=== PATIENT | female | born 1980 | race Caucasian/White ===

== ENCOUNTER 2024-02-05 10:30 | Day surgery (SDC) | payer BC, SELFPAY ==
[2024-02-05] VITALS (24 sets, daily range): BP systolic 99–133; BP diastolic 33–83; PULSE 44–63; RESP 7–19; TEMP 36.4–36.5; O2SAT 97–100; BMI 30.8
--- NOTE | 2024-02-05 09:30 | DI.RAD_ITS ---
Exam(s) XR WRIST LT LIMITED EXAM: XR WRIST LT LIMITED CLINICAL HISTORY: LEft Radius Fracture. TECHNIQUE: 2D and realtime digital imaging was performed. COMPARISON: CR LEFT MIDDLE FINGER from 03/27/2015 FINDINGS: Hard copy images show placement of a fixation plate along the volar aspect of the distal radius for f racture fixation. Please see procedure note for details. Fluoro time: 18.1seconds RADIATION DOSE DELIVERED: regine Santos=0.54 mGy
--- NOTE | 2024-02-05 10:38 | W.PREOPHP ---
Assessment and Plan Assessment and plan (1) Fracture of left distal radius: Status: Acute Assessment and plan: Kaycee is a 44-year-old female who suffered a fall resulting in a displaced distal radius fracture. Given the displacement, her young age, and duration from the time of the initial injury, I recommend operative fixation. I discussed the technical details of the case. I reviewed potential complications to include bleeding, infection, pain, stiffness, loss of reduction, malunion, nonunion, damage to nerves and vessels, damage to tendons including tendon rupture, need for repeat procedures. Despite these risk, she elects to proceed. Qualifiers: Encounter type: initial encounter Fracture morphology: Colles' Fracture type: closed Qualified Code(s): S52.532A - Colles' fracture of left radius, initial encounter for closed fracture History of Present Illness History of Present Illness Chief Complaint: Left Wrist Fracture Narrative: Sherry is a 44-year-old right hand dominant female who was on vacation in [place] when she tripped and fell onto an outstretched left hand. She had immediate pain and deformity. She was seen in a clinic there in [place] and diagnosed with a displaced slightly comminuted distal radius fracture. No significant reduction was performed she was placed into a splint. That happened about 1 week ago. She has had some continued pain about the wrist although within the splint. No numbness or tingling. Has had some difficulty with finger range of motion. Review of Systems All systems reviewed & are unremarkable except as noted in HPI and below PFSH All Active Problems Fracture of left distal radius (Acute) Surgical History Hx of wisdom tooth extraction section x2 Social History Smoking/Tobacco Use Status: Current every day Tobacco Type: cigarettes Smoking risk assessment performed?: Yes Alcohol Intake: current Alcohol Intake frequency: a few times a week Drug use: Never Substance use type: does not use Housing: apartment Do you feel safe at home: Yes Do you feel safe in your relationship?: Yes Meds Allergies and Home Medications Allergies Allergy/AdvReac Type Severity Reaction Status Date / Time Penicillins Allergy Intermediate hives Verified 02/05/24 10:46 Sulfa (Sulfonamide Allergy Intermediate hives Verified 02/05/24 10:46 Antibiotics) Home Medications ?Medication ?Instructions ?Recorded ?Confirmed ?Type acetaminophen 500 mg capsule 1,000 mg PO Q6H PRN 02/03/24 02/05/24 History Exam Const General: cooperative, healthy appearing, comfortable and no acute distress Resp Effort & Inspection: normal respiratory effort Auscultation: clear to auscultation bilaterally Cardio Rate: regular rate Rhythm: regular rhythm Extrem Other: Evaluation of the left hand shows notable swelling. Some ecchymosis. Sensation intact light touch of the median, radial, ulnar nerve. Capillary refill less than 2 seconds. Range of motion of the wrist was not tested. No pain to palpation of the elbow. Results Imaging Imaging Studies: X-ray of the left wrist was reviewed from phone images taken in [place]. This demonstrates a dorsally angulated distal radius fracture with an ulnar styloid fracture. The distal radial segment is angulated at least 35 to 40 degrees. No apparent intra-articular extension.
[2024-02-05] MEDS: Celecoxib 200 MG CAP 400 MG PO (10:53)
[2024-02-05] MEDS: Acetaminophen 500 MG TAB 1000 MG PO (10:53)
--- NOTE | 2024-02-05 10:53 | W.ANESPRE ---
General Info Date of Service Date Performed: 02/05/24 Height: 5 ft 2 in Weight: 76.5 kg Body Mass Index (BMI): 30.8 Surgical Procedure: Operation Date: 02/05/24 11:40 Proposed Procedure Side Surgeon p Wrist ORIF Distal Radius Left Ronal Javier MD Meds Allergies and Home Medications Allergies Allergy/AdvReac Type Severity Reaction Status Date / Time Penicillins Allergy Intermediate hives Verified 02/05/24 10:46 Sulfa (Sulfonamide Allergy Intermediate hives Verified 02/05/24 10:46 Antibiotics) Home Medication ?Medication ?Instructions ?Recorded acetaminophen 500 mg capsule 1,000 mg PO Q6H PRN 02/03/24 Current Visit Medications: Current Medications Generic Name Dose Route Start Last Admin Trade Name Freq PRN Reason Stop Dose Admin Acetaminophen 1,000 mg 02/05/24 06:00 Acetaminophen 500 Mg Tab PO 02/05/24 23:59 PREOP PEBBLES Celecoxib 400 mg 02/05/24 06:00 Celecoxib 200 Mg Cap PO 02/05/24 23:59 PREOP PEBBLES Ringer's Solution 1,000 mls @ 80 mls/hr 02/05/24 06:00 IV 03/05/24 23:59 INFUSION PEBBLES Cefazolin Sodium/Dextrose 2 gm in 50 mls @ 100 mls/hr 02/05/24 06:00 Ancef Duplex IVPB 02/05/24 23:59 PREOP PEBBLES Tranexamic Acid/Sodium Chloride 1,000 mg in 100 mls @ 600 mls/hr 02/05/24 06:00 IVPB 02/05/24 23:59 PREOP PEBBLES IV Miscellaneous Supplies 1 each 02/05/24 06:00 Iv Access IV 03/05/24 23:59 DIRECTED PEBBLES Sodium Chloride 0 ml 02/05/24 06:00 Normal Saline Flush 10 Ml Syr IV 03/05/24 23:59 PRN PRN Sodium Chloride 0 ml 02/05/24 06:00 Normal Saline 10 Ml Vial IJ 03/05/24 23:59 DIRECTED PRN Sterile Water 0 ml 02/05/24 06:00 Water,Injection,Sterile 10 Ml Vial IJ 03/05/24 23:59 DIRECTED PRN PFSH Active Problems Active Problems: Problem Status Onset Code Fracture of left distal radius Acute S52.502A Surgical History Surgical History Hx of wisdom tooth extraction section x2 Tobacco Smoking/Tobacco Use Status: Current every day Tobacco Type: cigarettes Alcohol Alcohol Intake: current Alcohol intake frequency: a few times a week Substance Use Substance use: Never Substance use type: does not use Vital Signs and Lab Results Vital Signs Most Recent Vital Signs in EMR: Most Recent Vital Signs Temp Pulse Resp BP Pulse Ox 36.5 C 60 16 99/51 L 98 02/05/24 10:47 02/05/24 10:47 02/05/24 10:47 02/05/24 10:47 02/05/24 10:47 Lab Results Blood Type / Crossmatch: No Data to Display Complete Blood Count: No Data to Display Complete Metabolic Panel: No Data to Display Liver Function Panel: No Data to Display Coagulation Panel: No Data to Display Cardiac Panel: No Data to Display Arterial Blood Gas: No Data to Display Venous Blood Gas: No Data to Display Pancreas Panel: No Data to Display Thyroid Panel: No Data to Display Infectious Disease: No Data to Display Blood Cultures: No Data to Display Toxicology Panel: No Data to Display Panel: No Data to Display Anesthesia Assessment and Plan Anesthesia History Personal History: No History of Anesthesia Complications Family History: No Family History of Anesthesia Complications Exercise Tolerance Exercise Tolerance: Metabolic Equivalents>4 Pertinent Negatives Pertinent Negatives: No Major Cardiovascular Symptoms or Complaints Cardiac & Pulmonary Exam Cardiac Exam: Normal S1/S2 Heart Sounds Pulmonary Exam: Clear Bilateral Breath Sounds Implantable Cardiac Device Does patient have a Pacemaker or an ICD?: No Airway Exam Known Difficult Airway: No Mallampati Class: 3 Mouth Opening: Narrow (< 3cm) Thyromental Distance: Greater than 3 cm Neck Range of Motion: Full ROM Neck Circumference: Normal Teeth Condition: Normal Dentition (Cracked #[id number] preexisting) ASA Classification ASA Score: ASA 2 Emergency Case?: No NPO Status NPO Status: NPO Clears >2 hours, Solids >8 hours Status Status: Negative HCG Anesthesia Plan Resuscitation Status: Full Code Anesthesia Technique: General Anesthesia Airway Planned: LMA Pain Management: Surgeon and patient request nerve block (Rescue in PACU if patient requests) Monitors Used: Standard Monitors
[2024-02-05] MEDS: Lactated Ringers 1,000 ML 80 ML IV (11:09)
[2024-02-05] MEDS: ceFAZolin 2 GM/50 ML BAG IVPB (11:32)
[2024-02-05] MEDS: TRANEXAMIC ACID/SOD. CHL. 1,000 MG/100 ML BAG 600 MG IVPB (11:44)
[2024-02-05] MEDS: Bupivacaine 0.5% Pres-Free W/EPI 30 ML VIAL (11:57)
--- NOTE | 2024-02-05 13:06 | PDOC.DSDIS_ITS ---
Date of service: 02/05/24 Time of Service: 13:07 Discharge Plan Disposition Patient Disposition: Home Condition: Good Discharge Details Attending Provider: Ronal Javier Primary Care Provider: Dania Cam Home Meds and New Rx's Prescriptions: New hydrocodone-acetaminophen 5-325 mg tablet 1 tab PO Q6H PRN (Reason: pain) Qty: 12 0RF acetaminophen 500 mg tablet 500 mg PO Q6H PRN PRN (Reason: pain) Qty: 40 3RF ibuprofen 600 mg tablet 600 mg PO TID PRN (Reason: pain) Qty: 90 3RF Discontinued acetaminophen 500 mg capsule 1,000 mg PO Q6H PRN Discharge Instructions Additional Instructions: Wrist Fracture Fixation Discharge Instructions Activity: You should keep the hand/wrist elevated as much as possible for the first few days. You may use the other fingers as tolerated but avoid trying to do too much too soon. You may perform light activities with the splint in place. Dressing/Cast: Your splint should stay in place at all times. Do NOT get it wet. You may loosen the AL wrap if you feel it is too tight and then rewrap more loosely. Medications: - You should take Tylenol and Ibuprofen for baseline pain control. - You have been prescribed a stronger pain medication, Hydrocodone, for breakthrough pain. - You may apply ice over the wrist, just double bag so it doesn't get wet. Follow-up: 10-14 days Referrals: Ronal Javier MD [ [facility] STAFF PHYSICIAN] - Equipment/Supplies: Splint Activity:: Elevate Remove Dressings/Wound Care:: Do Not Remove Shower/Bathe:: Cover Diet:: As Tolerated Discharge Orders Discharge Orders: Discharge Order (Routine); Ordered 02/05/24 Ordered By: Ronal Javier DS: Diagnosis Discharge Diagnosis (1) Fracture of left distal radius: Status: Acute
--- NOTE | 2024-02-05 13:09 | ROE_ITS ---
Date of service: 02/05/24 Time of Service: 11:40 Operative Note Operative Note DATE OF PROCEDURE: 02/05/24 PRE-OP DIAGNOSIS: Left Distal Radius Fracture POST-OP DIAGNOSIS: same PROCEDURE: Open Reduction and Internal Fixation of Extra-Articular Left Distal Radius SURGEON: Ronal Javier POLITICAL AIDE: Jese Leija ANESTHESIA TYPE: General LMA/ETT Refer to Anesthesia Record ESTIMATED BLOOD LOSS: 10 PATHOLOGY: none sent COMPLICATIONS: None Patient was transported to: PACU Patient's condition: stable Indications: Sherry is a 44 year old female who has a displaced distal radius fracture. Given the deformity, displacement, fracture pattern, and effect on daily function, I recommended surgical fixation. I reviewed the risk of the procedure to include bleeding, infection co-pay, stiffness, damage to nerves and vessels, damage to muscles and tendons, malunion, nonunion, hardware prominence, tendon rupture, need for repeat procedures. Despite these risks, the patient elected to proceed. Findings: There is a distal radius fracture which had 1 epiphyseal fragment, extra- articular. It was reduced and fixed with a Synthes volar locking plate. Procedure Description: Sherry was greeted in the preoperative holding area. The correct patient and site was confirmed and marked. The history and physical was updated. The consent was reviewed the patient and signed. The patient was taken to the operating room and placed in the supine position. All bony problems were well- padded. The left arm was placed onto a radiolucent hand table. Prophylactic antibiotics in the form of cefazolin were administered. The left arm was prepped with ChloraPrep and draped in a standard fashion. A timeout was performed for safe surgery. A standard longitudinal incision was made overlying the flexor carpi radialis tendon starting at the distal wrist crease and moving proximally. The skin was incised sharply. The flexor carpi radialis tendon and its sheath is identified. The sheath was opened. The tendon was moved ulnarly in the floor of the sheath was incised. Blunt dissection the flexor pollicis longus muscle belly and tendon were also made radially exposing the pronator quadratus and the distal radius. The printer quadratus was elevated with an ulnar-based flap. This exposed the volar distal radius and the fracture. A garber elevator was used for full exposure of the volar surface of the distal radius. The primary fracture line was exposed. Using a series of elevators, curettes, and knife, the fracture was fully debrided of any fibrous tissue and callus formation. I used a freer elevator to help mobilize the fragments. There was one distal epiphyseal fragment. I then performed a closed reduction. Using gentle traction and fracture manipulation, this reduction was held. A single k-wire was placed through the radial styloid and into the distal radial shaft. Fluoroscopic images were used to confirm adequate reduction. An appropriately sized Synthes volar locking plate was then placed onto the bony surface of the distal radius. Was then held there with a distal radius clamp sandwiching the plate to the distal segment. A single K wire was placed through the distal end. Fluoroscopy was once again used to confirm appropriate positioning of the plate on the distal radius. A reduction K wire was placed into the slotted hole on the shaft but not tightened all the way to allow for manipulation of the distal segment onto the proximal shaft. A single nonlocking screw was placed to the distal portion of the plate securing the plate against the bone of the distal radial metaphysis. Once again, the plate was evaluated to make sure it was aligned appropriately. The single screw was also checked to make sure it was in appropriate positioning for trajectory of future screws. The remainder of the screws within the volar locking plate were filled with locking screws. These were made sure not to penetrate the dorsal cortex. Once these were applied the proximal portion of the plate was further reduced down onto the shaft, which further reduce the distal segment. This was held in position with a tightened reduction K wire. Fluoroscopy was then used against confirm appropriate reduction. Nonlocking screws were placed within the 3 shaft screw holes. Final x-rays were obtained which demonstrated adequate reduction and positioning of hardware. The dorsal sunrise view was also obtained to ensure correct sizing of screws. The wound was then thoroughly irrigated. The pronator quadratus was reapproximated with a 0 Vicryl. The deep dermal layer was closed with a 2-0 Vicryl. The skin was closed with 4-0 nylon. The wound was dressed with Xeroform, 4 x 4's, web roll. A short arm splint was applied. At the end the case all counts are correct. Patient was transferred back to the PACU in stable condition.
[2024-02-05] MEDS: fentaNYL 100 MCG/2 ML VIAL IVP ×2 (13:16→13:59)
--- NOTE | 2024-02-05 13:45 | W.ANESNERVE ---
Nerve Block Single Injection Procedure Date and Time Date Performed: 02/05/24 Procedure Start: 13:34 Location Where Procedure Performed Procedure Location: PACU Reason Performed: Acute Pain Management Pain Diagnosis: Wrist Pain (Post wrist ORIF, consented for rescue block, currently having significant pain. ) Requesting Provider: Abida Wyatt Timeout Performed Timeout Performed: Yes Monitoring Used ECG, Blood Pressure and SpO2 Sterility Sterility: Hand Hygiene, Surgical Cap, Surgical Mask, Sterile Gloves, Sterile Drape/Sheet and Chlorhexidine Sedation Given During Procedure Sedation Given (Indicate Dose Given): No Sedation given Patient Mental Status Patient Mental Status: Awake Nerve Block 1st Nerve Block: Laterality: Left Block Type: Supraclavicular Ultrasound Image Saved?: Yes Needle / Catheter Used: 100mm SonoPlex II Local Anesthetic Bolus (Indicate Dose Given): Lidocaine used for local infiltration of skin, Bupivacaine 0.375% Dose:: 15 mL and Exparel Dose:: 20 mL Additives (Indicate Dose Given): None Ultrasound: Sterile probe cover and gel used Nerve Stimulator: Supplement to Ultrasound use and No twitch or parasthesia noted < 0.5 mA Paresthesia: None Procedure Tolerated: No Complications Procedure Outcome: Successful Performed By: Luis Lew
--- NOTE | 2024-02-05 15:28 | W.ANESPOSTOP ---
Postoperative Evaluation Date, Time and Location Date Performed: 02/05/24 Time Performed: 15:10 Patient Location: Day Surgery Unit Vital Signs Most Recent Imported Vital Signs: Most Recent Vital Signs Temp Pulse Resp BP Pulse Ox 36.5 C 59 L 16 121/66 98 02/05/24 14:52 02/05/24 14:52 02/05/24 14:52 02/05/24 14:52 02/05/24 14:52 Pain Score Most Recent Pain Score: Most Recent Pain Score Pain Level 0 02/05/24 14:52 Assessment Mental Status: Awake (Alert & Oriented to Patient Baseline) Airway and Respiratory Function: Patent airway with normal (patient baseline) respiratory exam Cardiovascular Function: Hemodynamically Stable Hydration Status: Adequately Hydrated Nausea & Vomiting: No Nausea or Vomiting Pain: Pain is tolerable per patient Peripheral Nerve Block: Regional nerve block not resolved at time of post operative discharge
== END 2024-02-05 15:14 | disposition home or self-care (01) ==
PROVIDERS: PCP Nurse Practitioner Family; Visit Provider Student in an Organized Health Care Education/Training Program
PROC: (CPT 25608; principal; 2024-02-05 11:30)
DX: S52.572A Other intraarticular fracture of lower end of left radius, initial encounter for closed fracture (principal); W19.XXXA Unspecified fall, initial encounter; F17.210 Nicotine dependence, cigarettes, uncomplicated
CPT/HCPCS: 25608; 76000; 76942; 81025; 73100; C9290; J0665; J0690; J1100; J2001; J2250; J2405; J2704; J3010

== ENCOUNTER 2024-02-16 15:50 | Outpatient (CLI) | payer BC, SELFPAY ==
--- NOTE | 2024-02-16 10:36 | DI.RAD_ITS ---
Exam(s) XR WRIST LT LIMITED EXAM: XR WRIST LT LIMITED CLINICAL HISTORY: 1ST POST OP S/P ORIF L DISTAL RADIUS. TECHNIQUE: 2D digital imaging was performed. Two images were obtained. PA and lateral views were ob tained. COMPARISON: XR WRIST LT LIMITED from 02/05/2024 FINDINGS: BONES: There are stable post operative changes of internal fixation of the distal radial fracture pre sent. No new fracture or dislocation. There is a stable mildly distracted ulnar styloid process frac ture. JOINTS: The joint spaces are well maintained. SOFT TISSUE: Normal. IMPRESSION: Stable postoperative changes. DATA REPOSITORY: RADIATION DOSE DELIVERED:
== END 2024-02-16 15:51 | disposition home or self-care (01) ==
LOC: DIORS 15:51
PROVIDERS: PCP Nurse Practitioner Family; Visit Provider Student in an Organized Health Care Education/Training Program
DX: S52.532D Colles' fracture of left radius, subsequent encounter for closed fracture with routine healing (principal); X58.XXXD Exposure to other specified factors, subsequent encounter
CPT/HCPCS: 73100

== ENCOUNTER 2024-03-19 10:17 | Outpatient (CLI) | payer BC, SELFPAY ==
--- NOTE | 2024-03-19 09:15 | DI.RAD_ITS ---
Exam(s) XR WRIST LT LIMITED EXAM: XR WRIST LT LIMITED INDICATION: f/u DISTAL RAD FX. COMPARISON: CR XR WRIST LT LIMITED from 02/16/2024 TECHNIQUE: 2D digital imaging was performed. Two views. FINDINGS: Fixation plate remains in place along the volar aspect of the distal radius. There has been no polo e in hardware or fracture alignment. Ulnar styloid fracture is also unchanged. DATA REPOSITORY: RADIATION DOSE DELIVERED:
== END 2024-03-19 10:18 | disposition home or self-care (01) ==
LOC: DIORS 10:17
PROVIDERS: PCP Nurse Practitioner Family; Referring Provider Nurse Practitioner Family; Visit Provider Physician Assistant
DX: S52.532D Colles' fracture of left radius, subsequent encounter for closed fracture with routine healing (principal); X58.XXXD Exposure to other specified factors, subsequent encounter
CPT/HCPCS: 73100

== ENCOUNTER 2024-04-29 14:54 | Outpatient (CLI) | payer BC, SELFPAY ==
--- NOTE | 2024-04-29 13:00 | DI.RAD_ITS ---
Exam(s) XR WRIST LT LIMITED EXAM: XR WRIST LT LIMITED INDICATION: s/p ORIF L DISTAL RAD. COMPARISON: CR XR WRIST LT LIMITED from 03/19/2024 TECHNIQUE: 2D digital imaging was performed. Two views. FINDINGS: Volar fixation plate remains in place and is unchanged in alignment. There has been continued fractu re healing of the distal radial fracture which is now only faintly visualized. Ulnar styloid fractur e is unchanged. DATA REPOSITORY: RADIATION DOSE DELIVERED:
== END 2024-04-29 14:55 | disposition home or self-care (01) ==
LOC: DIORS 14:54
PROVIDERS: PCP Nurse Practitioner Family; Visit Provider Student in an Organized Health Care Education/Training Program
DX: S52.532D Colles' fracture of left radius, subsequent encounter for closed fracture with routine healing (principal); X58.XXXD Exposure to other specified factors, subsequent encounter
CPT/HCPCS: 73100

== ENCOUNTER 2024-06-11 10:21 | Outpatient (CLI) | payer BC, SELFPAY ==
--- NOTE | 2024-06-11 08:45 | DI.RAD_ITS ---
Exam(s) XR WRIST LT LIMITED EXAM: XR WRIST LT LIMITED CLINICAL HISTORY: s/p ORIF L DISTAL RAD FX. TECHNIQUE: 2D digital imaging was performed. COMPARISON: CR XR WRIST LT LIMITED from 04/29/2024 FINDINGS: 3 views Fixation plate on the volar aspect distal radius exhibits normal position without evidence hardware l oosening nor osteomyelitis. There is continued further fracture healing of the distal radius. Fract ure line no longer visible. Ulnar styloid fracture site appears unchanged. Scaphoid and scapholunate distance are normal. IMPRESSION: As above. DATA REPOSITORY: RADIATION DOSE DELIVERED:
== END 2024-06-11 10:22 | disposition home or self-care (01) ==
LOC: DIORS 10:25
PROVIDERS: PCP Nurse Practitioner Family; Visit Provider Physician Assistant
DX: S52.532D Colles' fracture of left radius, subsequent encounter for closed fracture with routine healing (principal); X58.XXXD Exposure to other specified factors, subsequent encounter
CPT/HCPCS: 73100

== ENCOUNTER 2025-04-12 09:59 | Outpatient (CLI) | payer BC, SELFPAY ==
--- NOTE | 2025-04-12 08:00 | DI.RAD_ITS ---
Exam(s) XR ANKLE RT COMPLETE EXAM: XR ANKLE RT COMPLETE CLINICAL HISTORY: RIGHT ANKLE PAIN. TECHNIQUE: 2D digital imaging was performed. Three views. COMPARISON: No exams were available for comparison FINDINGS: BONES: No acute fracture is present. No bony destructive lesion is seen. JOINTS: The ankle mortise is normally aligned. There are no significant degenerative changes. SOFT TISSUE: Normal. IMPRESSION: Unremarkable radiographs of the right ankle. DATA REPOSITORY: RADIATION DOSE DELIVERED:
== END 2025-04-12 10:00 | disposition home or self-care (01) ==
LOC: DIORS 09:59
PROVIDERS: PCP Nurse Practitioner Family; Visit Provider Physician Assistant
DX: M25.571 Pain in right ankle and joints of right foot (principal)
CPT/HCPCS: 73610